=== PATIENT | male | born 1985 | race Caucasian/White ===

== ENCOUNTER 2021-05-06 12:17 | Emergency (ER) | payer MEDICAID ==
[~2021-05-06] VITALS: Ht 180.3 cm; Wt 90.9 kg
[2021-05-06 13:49] LABS: BASOPHILS # (AUTO) 0.1 X10'3 (0-0.2); BASOPHILS % (AUTO) 0.6 % (0-1); EOSINOPHILS # (AUTO) 0.1 X10'3 (0-0.9); EOSINOPHILS % (AUTO) 0.5 % (0-6); HEMATOCRIT 48.1 % (42.0-52.0); HEMOGLOBIN 16.1 g/dl (14.0-17.9); LYMPHOCYTES # (AUTO) 1.2 X10'3 (1.1-4.8); MEAN CORPUSCULAR HEMOGLOBIN 30.4 PG (27.0-31.0); MEAN CORPUSCULAR HGB CONC 33.4 g/dL (33.0-36.5); MEAN PLATELET VOLUME 9.4 FL (7.4-10.4); MONOCYTES # (AUTO) 0.5 X10'3 (0-0.9); MONOCYTES % (AUTO) 3.6 % (2-12); NEUTROPHILS # (AUTO) 11.1 X10'3 (1.8-7.7); NEUTROPHILS % (AUTO) 86.3 % (42-75); PLATELET COUNT 253 X10'3 (140-440); RED BLOOD COUNT 5.29 X10'6 (4.70-6.10); RED CELL DISTRIBUTION WIDTH 13.6 % (11.5-14.5); WHITE BLOOD COUNT 12.8 X10'3 (4.5-11.0)
[2021-05-06 14:14] LABS: ALANINE AMINOTRANSFERASE 53 U/L (12-78); ALBUMIN 2.6 G/DL (3.4-5.0); ALBUMIN/GLOBULIN RATIO 0.4 (1.1-1.5); ALKALINE PHOSPHATASE 79 IU/L (46-116); ANION GAP 12 (8-16); ASPARTATE AMINO TRANSFERASE 33 U/L (10-37); BILIRUBIN,TOTAL 0.5 MG/DL (0.1-1.0); BLOOD UREA NITROGEN 14 MG/DL (7-18); BUN/CREATININE RATIO 9.9 (5.4-32.0); CALCIUM 8.6 MG/DL (8.5-10.1); CHLORIDE 105 MMOL/L (99-107); CREATININE 1.42 MG/DL (0.60-1.10); GLUCOSE 112 MG/DL (70-104); LIPASE 68 U/L (73-393); POTASSIUM 4.1 MMOL/L (3.5-5.1); SODIUM 142 MMOL/L (135-145); TOTAL CARBON DIOXIDE 25.4 MMOL/L (24-32); TOTAL PROTEIN 8.4 G/DL (6.4-8.2); eGFR 56 ML/MIN
[2021-05-06] MEDS ORDERED: normal saline 1000ML IV soln IVB ONE (15:10)
[2021-05-06] MEDS ORDERED: morphine 4 MG/ML inj SYRINge IV ONE ×2 (15:10→16:05)
[2021-05-06 16:24] LABS: CLARITY,URINE CLOUDY (Clear); COLOR,URINE YELLOW (Yellow); GLUCOSE, URINE NEGATIVE (Neg); KETONES,URINE NEGATIVE (Neg); LEUKOCYTE ESTERASE ,URINE NEGATIVE (Neg); NITRITES, URINE NEGATIVE (Neg); OCCULT BLOOD,URINE LARGE (Neg); PROTEIN,URINE NEGATIVE (Neg); UROBILINOGEN,URINE 0.2 E.U/dL (0.2-1.0)
[2021-05-06 16:37] LABS: UA COLLECTION TYPE URINAL
[2021-05-06 17:01] LABS: AMORPHOUS URATES 4+
[2021-05-06 17:02] LABS: BACTERIA,URINE FEW /HPF (Neg); SQUAMOUS EPITHELIAL CELL,UR FEW /LPF (FEW); WBC,URINE 0-4 /HPF (0-4)
[2021-05-06] MEDS ORDERED: fentaNYL/PF 50MCG/1 ML 2ML syringe IV ONE (17:10)
[2021-05-06] MEDS ORDERED: morphine 10mg/ml inj. IM ONE (17:20)
[2021-05-06] MEDS ORDERED: ondansetron 4mg/5ml UD cup PO ONE (18:10)
[2021-05-06] MEDS ORDERED: ondansetron 4mg rapidly disintigrating tab PO ONE (18:25)
[2021-05-06] MEDS ORDERED: FLO0.4C PO (19:03)
[2021-05-06] MEDS ORDERED: HYDR-3965 PO (19:03)
[2021-05-06] MEDS ORDERED: HYDROcodone/acetaminophen 5mg/325mg tablet PO ONE (19:10)
[2021-05-06 20:03] VITALS: BP 151/107
== END 2021-05-06 20:06 | disposition home or self-care (01) ==
LOC: ER 12:18
DX: N20.1 Calculus of ureter (principal); R10.31 Right lower quadrant pain; Z79.899 Other long term (current) drug therapy
CPT/HCPCS: 36415; 74176; 80053; 81001; 83690; 85025; 96361; 96372; 96374; 96375; 96376; 99285; J2270; J3010; J7030

== ENCOUNTER 2021-07-11 12:44 | Emergency (ER) | payer MEDICAID ==
[~2021-07-11] VITALS: Ht 180.3 cm; Wt 100.0 kg
[2021-07-11 13:19] VITALS: BP 143/79
== END 2021-07-11 22:57 | disposition left against medical advice (07) ==
LOC: ER 12:44
DX: S40.811A Abrasion of right upper arm, initial encounter (principal); R07.81 Pleurodynia; Z53.21 Procedure and treatment not carried out due to patient leaving prior to being seen by health care provider; V86.99XA Unspecified occupant of other special all-terrain or other off-road motor vehicle injured in nontraffic accident, initial encounter; Y93.89 Activity, other specified; Y92.89 Other specified places as the place of occurrence of the external cause; Y99.8 Other external cause status
CPT/HCPCS: 71045; 71100; 73502; 99284

== ENCOUNTER 2021-08-28 17:59 | Emergency (ER) | payer MEDICAID ==
[~2021-08-28] VITALS: Ht 180.3 cm; Wt 100.0 kg
[2021-08-28 18:45] LABS: BASOPHILS # (AUTO) 0.1 X10'3 (0-0.2); BASOPHILS % (AUTO) 0.7 % (0-1); EOSINOPHILS # (AUTO) 0.1 X10'3 (0-0.9); EOSINOPHILS % (AUTO) 1.4 % (0-6); HEMOGLOBIN 15.9 g/dl (14.0-17.9); LYMPHOCYTES # (AUTO) 1.9 X10'3 (1.1-4.8); LYMPHOCYTES % (AUTO) 19.6 % (21-51); MEAN CORPUSCULAR HEMOGLOBIN 31.2 PG (27.0-31.0); MEAN CORPUSCULAR HGB CONC 34.6 g/dL (33.0-36.5); MEAN PLATELET VOLUME 9.5 FL (7.4-10.4); MONOCYTES # (AUTO) 0.8 X10'3 (0-0.9); MONOCYTES % (AUTO) 8.2 % (2-12); NEUTROPHILS # (AUTO) 6.8 X10'3 (1.8-7.7); NEUTROPHILS % (AUTO) 70.1 % (42-75); PLATELET COUNT 230 X10'3 (140-440); RED BLOOD COUNT 5.11 X10'6 (4.70-6.10); RED CELL DISTRIBUTION WIDTH 13.7 % (11.5-14.5); WHITE BLOOD COUNT 9.6 X10'3 (4.5-11.0)
[2021-08-28 18:51] LABS: ALANINE AMINOTRANSFERASE 64 U/L (12-78); ALBUMIN 4.1 G/DL (3.4-5.0); ALKALINE PHOSPHATASE 78 IU/L (46-116); ANION GAP 11 (8-16); ASPARTATE AMINO TRANSFERASE 34 U/L (10-37); BILIRUBIN,TOTAL 0.3 MG/DL (0.1-1.0); BLOOD UREA NITROGEN 27 MG/DL (7-18); BUN/CREATININE RATIO 18.2 (5.4-32.0); CALCIUM 9.5 MG/DL (8.5-10.1); CHLORIDE 108 MMOL/L (99-107); CREATININE 1.48 MG/DL (0.60-1.10); GLUCOSE 79 MG/DL (70-104); POTASSIUM 4.3 MMOL/L (3.5-5.1); SODIUM 143 MMOL/L (135-145); TOTAL PROTEIN 8.2 G/DL (6.4-8.2); eGFR 53 ML/MIN
[2021-08-28] MEDS ORDERED: acetaminophen 325mg tablet PO ONE (22:25)
[2021-08-28] MEDS ORDERED: ibuprofen tablet 400 MG TABLET PO ONE (22:25)
[2021-08-28] MEDS ORDERED: DOXY100C43 PO (22:43)
[2021-08-28] MEDS ORDERED: DOXYCYCLINE 100MG CAPSULE PO ONE (22:45)
[2021-08-28] MEDS ORDERED: CefTRIAXone 1000mg IM Kit (w/lidocaine diluent) IM ONE (22:45)
[2021-08-28 22:52] VITALS: BP 139/90
[2021-08-28 23:29] LABS: CLARITY,URINE CLOUDY (Clear); COLOR,URINE YELLOW (Yellow); GLUCOSE, URINE NEGATIVE (Neg); KETONES,URINE NEGATIVE (Neg); LEUKOCYTE ESTERASE ,URINE NEGATIVE (Neg); NITRITES, URINE NEGATIVE (Neg); OCCULT BLOOD,URINE LARGE (Neg); PROTEIN,URINE NEGATIVE (Neg); UA COLLECTION TYPE CLN CATCH MIDSTREAM; UROBILINOGEN,URINE 0.2 E.U/dL (0.2-1.0)
[2021-08-28 23:40] LABS: MUCUS STRANDS FEW /LPF (Neg); SQUAMOUS EPITHELIAL CELL,UR FEW /LPF (FEW); URIC ACID CRYSTALS 4+ /HPF (NEGATIVE)
[2021-08-28 23:41] LABS: BACTERIA,URINE FEW /HPF (Neg); WBC,URINE 0-4 /HPF (0-4)
== END 2021-08-28 23:04 | disposition home or self-care (01) ==
LOC: ER 18:00
DX: Z11.3 Encounter for screening for infections with a predominantly sexual mode of transmission (principal); R10.31 Right lower quadrant pain; M54.89 Other dorsalgia; F17.200 Nicotine dependence, unspecified, uncomplicated; Z87.442 Personal history of urinary calculi; Z72.89 Other problems related to lifestyle; Z79.2 Long term (current) use of antibiotics
CPT/HCPCS: 36415; 74176; 80053; 81001; 85025; 87491; 87591; 96372; 99284; J0696